=== PATIENT | male | born 1985 | race Caucasian/White ===

== ENCOUNTER 2017-02-03 13:25 | Emergency (ER) | payer MEDICAID ==
[~2017-02-03] VITALS: Ht 167.6 cm; Wt 77.1 kg
[2017-02-03 13:43] VITALS: BP 129/77
--- NOTE | 2017-02-03 14:03 | Emergency Room Report ---
History of Present Illness General Chief Complaint: Flu Like Symptoms Source: Patient Present Illness HPI 31-year-old male presents to the emergency department complaining of cough, runny nose, body aches, and 5/10 sore throat x one week. Patient denies fevers he reports chills denies neck pain or stiffness. Patient reports he is currently in sober living and multiple residents are ill with the same symptoms. Patient denies having this years flu vaccination. He denies rashes, abdominal pain. Denies CP, Palpitations, LOC, AMS, dizziness, Changes in Vision , Sensation, paresthesias, or a sudden severe headache. Allergies: Uncoded Allergies: SHELLFISH (Allergy, Unknown, 02/03/17) Patient History Past Medical History: see triage record Past Surgical History: none Pertinent Family History: none Reviewed Nursing Documentation: PMH: Agreed, PSxH: Agreed Nursing Documentation-PMH Hx Cardiac Problems: No - hyperlipidemia/ poly substance abuse Review of Systems All Other Systems: negative except mentioned in HPI Physical Exam Vital Signs Date Time Temp Pulse Resp B/P (MAP) Pulse Ox O2 Delivery O2 Flow Rate FiO2 02/03/17 13:37 97.9 83 18 129/77 98 Room Air Sp02 EP Interpretation: reviewed, normal General Appearance: no apparent distress, alert, GCS 15, non-toxic Head: normocephalic, atraumatic Eyes: bilateral eye normal inspection, bilateral eye PERRL ENT: hearing grossly normal, normal pharynx, no angioedema, normal voice, pharyngeal erythema Neck: full range of motion, no meningismus, no bony tend Respiratory: lungs clear, normal breath sounds, no rhonchi, no wheezing, speaking full sentences Cardiovascular #1: regular rate, rhythm Musculoskeletal: back normal, gait/station normal, normal range of motion, non- tender Neurologic: alert, oriented x3, responsive, motor strength/tone normal, sensory intact, speech normal Psychiatric: judgement/insight normal, memory normal, mood/affect normal Skin: normal color, no rash, warm/dry, well hydrated Lymphatic: no adenopathy Medical Decision Making PA Attestation Dr. Carcamo is my supervising Physician whom patient management has been discussed with. Diagnostic Impression: Primary Impression: Upper respiratory infection, viral ER Course 31-year-old male presents to the emergency department complaining of cough, runny nose, body aches, and 5/10 sore throat x one week. Patient denies fevers he reports chills denies neck pain or stiffness. Patient reports he is currently in sober living and multiple residents are ill with the same symptoms. Patient denies having this years flu vaccination. He denies rashes, abdominal pain. Denies CP, Palpitations, LOC, AMS, dizziness, Changes in Vision , Sensation, paresthesias, or a sudden severe headache. Ddx considered but are not limited to URI, pneumonia, PE, strep pharyngitis, meningitis. Vital signs: Pt. is afebrile, the remaining VS are WNL H&PE are most consistent with URI- no meningeal signs, oropharynx is not involved, no evidence of bacterial infection at this time. ORDERS: none required at this time, the diagnosis is clinical ED INTERVENTIONS: None required at this time. DISCHARGE: At this time pt. is stable for d/c to home. Will provide printed patient care instructions, and any necessary prescriptions. Care plan and follow up instructions have been discussed with the patient prior to discharge. Last Vital Signs Date Time Temp Pulse Resp B/P (MAP) Pulse Ox O2 Delivery O2 Flow Rate FiO2 02/03/17 13:43 83 18 Room Air 02/03/17 13:43 129/77 98 02/03/17 13:37 97.9 Disposition: HOME, SELF-CARE Condition: Stable Scripts Acetaminophen* (TYLENOL EXTRA STRENGTH*) 500 Mg Tablet 500 MG ORAL Q6H Y for Mild Pain/Temp > 100.5, #20 TAB 0 Refills Prov: Steffany Barrow 02/03/17 Guaifenesin/Dextromethorphan (ROBITUSSIN COUGH-CHEST DM LIQ) 237 Ml Liquid 5 ML PO Q6HR, #237 ML Prov: Steffany Barrow 02/03/17 Referrals: NOT CHOSEN [facility]/,REFERRING (PCP) Patient Instructions: Upper Respiratory Infection, Adult, [id number] Additional Instructions: Take medications as directed. Follow up with a Primary Care Provider in 3-5 days, even if your symptoms have resolved. --Please review list of primary care clinics, if you do not already have a primary care provider Return sooner to ED if new symptoms occur, or current symptoms become worse. - Please note that this Emergency Department Report was dictated using [employer] bench mechanic technology software, occasionally this can lead to erroneous entry secondary to interpretation by the dictation equipment. Steffany Barrow Feb 03, 2017 14:03
[2017-02-03] MEDS ORDERED: ROBITUSSIN COU237 M1 PO (14:04)
[2017-02-03] MEDS ORDERED: TYLENOL EXTRA500 MG ORAL (14:04)
[2017-02-03 14:08] VITALS: BP 129/77
== END 2017-02-03 14:08 | disposition home or self-care (01) ==
LOC: EMR 13:56
DX: J06.9 Acute upper respiratory infection, unspecified (principal); R05 Cough; R09.89 Other specified symptoms and signs involving the circulatory and respiratory systems; J02.9 Acute pharyngitis, unspecified
CPT/HCPCS: 99283

== ENCOUNTER 2017-04-12 14:05 | Emergency (ER) | payer MEDICAID, OTHER ==
[~2017-04-12] VITALS: Ht 167.6 cm; Wt 77.1 kg
[~2017-04-12 14:05] MED LIST: ROBITUSSIN COU237 M1 PO; TYLENOL EXTRA500 MG ORAL
[2017-04-12 14:20] VITALS: BP 129/76
[2017-04-12] MEDS: Norco 5mg/325mg tab ORAL ONE ×2 (14:23→14:34)
[2017-04-12] MEDS ORDERED: Acetaminophen 500mg (ES) tab ORAL ONE (14:45)
--- NOTE | 2017-04-12 15:26 | Emergency Room Report ---
History of Present Illness General Chief Complaint: Pain Source: Patient, Medical Record (Steffany Barrow) Present Illness HPI 32-year-old male presents to the emergency department complaining of 8/10 in severity dorsal right ankle pain after mechanical twisting of his ankle yesterday patient is able to bear weight however he reports continued tenderness and pain is exacerbated upon walking he reports a mild swelling. Patient denies previous injury to this extremity. Denies numbness tingling or loss of sensation or gross motor movements of the extremities, incontinence of bowel or bladder. Denies CP, Palpitations, LOC, AMS, dizziness, Changes in Vision, Sensation, paresthesias, or a sudden severe headache. (Steffany Barrow) Allergies: Uncoded Allergies: SHELLFISH (Allergy, Unknown, 02/03/17) Patient History Past Medical History: see triage record Past Surgical History: none Pertinent Family History: none Reviewed Nursing Documentation: PMH: Agreed, PSxH: Agreed (Steffany Barrow) Nursing Documentation-PMH Past Medical History: No History, Except For Hx Cardiac Problems: No - hyperlipidemia/ poly substance abuse (Steffany Barrow.Félix) Review of Systems All Other Systems: negative except mentioned in HPI (Steffany Barrow) Physical Exam Vital Signs Date Time Temp Pulse Resp B/P (MAP) Pulse Ox O2 Delivery O2 Flow Rate FiO2 04/12/17 14:11 97.9 84 18 129/76 97 Room Air Sp02 EP Interpretation: reviewed, normal General Appearance: no apparent distress, alert, GCS 15, non-toxic Head: normocephalic, atraumatic Eyes: bilateral eye normal inspection, bilateral eye PERRL ENT: hearing grossly normal, normal voice Neck: full range of motion Respiratory: lungs clear, normal breath sounds, speaking full sentences Cardiovascular #1: regular rate, rhythm, no edema Cardiovascular #2: 2+ dorsalis pedis (R) Rectal: deferred Musculoskeletal: back normal, normal range of motion, tender - TTP to the dorsum and medial aspect of the right foot, no bruises, very mild swelling noted , NVI Neurologic: alert, oriented x3, responsive, motor strength/tone normal, sensory intact, speech normal, grossly normal Skin: normal color, no rash, warm/dry, well hydrated Lymphatic: no adenopathy (Steffany Barrow) Medical Decision Making PA Attestation Dr. Carcamo is my supervising Physician whom patient management has been discussed with. (Steffany Barrow) Diagnostic Impression: Primary Impression: Right ankle sprain Qualified Codes: S93.401A - Sprain of unspecified ligament of right ankle, initial encounter ER Course 32-year-old male presents to the emergency department complaining of 8/10 in severity dorsal right ankle pain after mechanical twisting of his ankle yesterday patient is able to bear weight however he reports continued tenderness and pain is exacerbated upon walking he reports a mild swelling. Patient denies previous injury to this extremity. Denies numbness tingling or loss of sensation or gross motor movements of the extremities, incontinence of bowel or bladder. Denies CP, Palpitations, LOC, AMS, dizziness, Changes in Vision, Sensation, paresthesias, or a sudden severe headache. Ddx considered but are not limited to Fracture, dislocation, contusion, Sprain/ Strain/Spasm. Vital signs: are WNL, pt. is afebrile H&PE are most consistent with musculoskeletal injury will perform imaging to r/ o fractures/dislocations. Pt. ambulated into ED and into room. mild compensation noted favoring the right foot. ORDERS: - X-ray Right Ankle 3 views - negative for fx, Dislocation, or significant soft tissue injury, per preliminary read in ED, and signed by GISELL Barrow , my supervising physician has reviewed, and agrees with my interpretation. ED INTERVENTIONS: - Tylenol PO -Rick wrap applied by computer service technician. Pt. remains neurovascularly intact. --Patient is provided with crutches and instructed on their use DISCHARGE: At this time pt. is stable for d/c to home. Will provide printed patient care instructions, and any necessary prescriptions. Care plan and follow up instructions have been discussed with the patient prior to discharge. (Steffany Barrow) ER Course Procedure: XRAY Ankle Compl Min 3v R Indication: Pain right ankle Comparison: None Findings: 3 views of the right ankle obtained. There is a question of osteochondral defect along the medial aspect of the talar dome. Suggest further evaluation with CT or MRI. Alignment is normal. Soft tissues are unremarkable. IMPRESSION: Possible osteochondral defect in the talar dome. (Home Carcamo M.D.) Other X-Ray Diagnostic Results Other X-Ray Diagnostic Results : X-Ray ordered: Right ankle # of Views/Limited Vs Complete: 3 View Indication: Pain EP Interpretation: Yes PA Xray: Interpretation reviewed, by supervising MD, and agrees with findings. Interpretation: no dislocation, no soft tissue swelling, no fractures Impression: No acute disease Electronically Signed by: Steffany Barrow PA-C (Steffany Barrow) Last Vital Signs Date Time Temp Pulse Resp B/P (MAP) Pulse Ox O2 Delivery O2 Flow Rate FiO2 04/12/17 14:20 97.9 78 18 129/76 97 Room Air (Steffany Barrow) Disposition: HOME, SELF-CARE Condition: Stable Scripts Ibuprofen* (MOTRIN*) 600 Mg Tablet 600 MG ORAL THREE TIMES A DAY, #30 TAB 0 Refills Prov: Steffany Barrow 04/12/17 Referrals: [facility],REFERRING (PCP) Patient Instructions: Ankle Sprain, [id number] Additional Instructions: Take medications as directed. Follow up with a Primary Care Provider in 3-5 days, even if your symptoms have resolved. --Please review list of primary care clinics, if you do not already have a primary care provider Return sooner to ED if new symptoms occur, or current symptoms become worse. Do not drink alcohol, drive, or operate heavy machinery while taking [ ] as this may cause drowsiness. - Please note that this Emergency Department Report was dictated using [employer] operator technology software, occasionally this can lead to erroneous entry secondary to interpretation by the dictation equipment. Steffany Barrow Apr 12, 2017 15:26 Home Carcamo M.D. Apr 16, 2017 07:20
[2017-04-12] MEDS ORDERED: IBUPROFEN600 MG ORAL (15:27)
[2017-04-12 15:35] VITALS: BP 129/76
--- NOTE | 2017-04-12 16:22 | Diagnostic Imaging Report ---
Indication: Pain right ankle Comparison: None Findings: 3 views of the right ankle obtained. There is a question of osteochondral defect along the medial aspect of the talar dome. Suggest further evaluation with CT or MRI. Alignment is normal. Soft tissues are unremarkable. IMPRESSION: Possible osteochondral defect in the talar dome.
== END 2017-04-12 15:35 | disposition home or self-care (01) ==
LOC: EMR 14:28
DX: S93.401A Sprain of unspecified ligament of right ankle, initial encounter (principal); X50.1XXA Overexertion from prolonged static or awkward postures, initial encounter; Y92.9 Unspecified place or not applicable; Z91.013 Allergy to seafood
CPT/HCPCS: 99283

== ENCOUNTER 2017-05-20 08:03 | Emergency (ER) | payer OTHER ==
[~2017-05-20] VITALS: Ht 167.6 cm; Wt 77.1 kg
[~2017-05-20 08:03] MED LIST changes: +IBUPROFEN600 MG ORAL
[2017-05-20] MEDS ORDERED: NAPROXEN375 M2 ORAL (08:40)
[2017-05-20] MEDS ORDERED: LIDOCAINE VISC100 ML ORAL (08:40)
[2017-05-20] MEDS ORDERED: Lidocaine 2% Visc 15ml soln ORAL ONE (08:45)
[2017-05-20 08:49] VITALS: BP 127/89
[2017-05-20 08:50] VITALS: BP 127/89
--- NOTE | 2017-06-28 16:19 | Emergency Room Report ---
History of Present Illness General Chief Complaint: Flu Like Symptoms Source: Patient Present Illness HPI Patient 32-year-old male who presented after increased sore throat. Gradual onset of symptoms. Patient had some difficulty swallowing. He had not been having any neck stiffness. He denied vomiting.Patient was noted to have a cough with green phlegm. Allergies: Uncoded Allergies: SHELLFISH (Allergy, Unknown, 02/03/17) Patient History Past Medical History: see triage record Reviewed Nursing Documentation: PMH: Agreed, PSxH: Agreed Nursing Documentation-PMH Past Medical History: No History, Except For Review of Systems All Other Systems: negative except mentioned in HPI Physical Exam Vital Signs Date Time Temp Pulse Resp B/P (MAP) Pulse Ox O2 Delivery O2 Flow Rate FiO2 05/20/17 08:14 99.0 116 20 127/89 95 Room Air General Appearance: well appearing, no apparent distress, alert, GCS 15 Head: normocephalic, atraumatic ENT: hearing grossly normal, normal voice Neck: full range of motion, supple Respiratory: no respiratory distress, speaking full sentences Cardiovascular #1: normal inspection, normal peripheral pulses, regular rate, rhythm Gastrointestinal: normal inspection, normal bowel sounds, non tender Musculoskeletal: no calf tenderness Neurologic: normal inspection, alert, oriented x3, responsive, normal gait Psychiatric: normal inspection, mood/affect normal Skin: no rash Medical Decision Making Diagnostic Impression: Primary Impression: Acute viral pharyngitis ER Course Patient presented for sore throat . Differential diagnosis included but was not limited to meningitis, exudative tonsillitis, retropharyngeal abscess, epiglottitis, strep pharyngitis. Patient has a benign exam and does not appear to require any further imaging or laboratory testing at this time. The patient presented viral pharyngitis. The patient is advised to follow up with primary care doctor in 1-2 days. Patient is advised to return if any worsening condition or if any changes in status that are concerning. This report is dictated with [employer] aluminum can collector software which may occasionally lead to discrepancies related to use of this software. Last Vital Signs Date Time Temp Pulse Resp B/P (MAP) Pulse Ox O2 Delivery O2 Flow Rate FiO2 05/20/17 08:50 99.0 105 20 127/89 95 Room Air Status: improved Disposition: HOME, SELF-CARE Condition: Stable Scripts Lidocaine HCl 2% Viscous (Lidocaine HCl 2% Viscous) 100 Ml Solution 15 ML ORAL QID for For Pain, #120 ML Prov: Pepito Mccoy 05/20/17 Naproxen* (NAPROXEN*) 375 Mg Tablet. 375 MG ORAL TWICE A DAY, #20 TAB Prov: Pepito Mccoy 05/20/17 Patient Instructions: Pharyngitis Pepito Mccoy Jun 28, 2017 16:19
== END 2017-05-20 08:57 | disposition home or self-care (01) ==
LOC: EMR 08:24
DX: J02.8 Acute pharyngitis due to other specified organisms (principal); B97.89 Other viral agents as the cause of diseases classified elsewhere; Z91.013 Allergy to seafood
CPT/HCPCS: 99283

== ENCOUNTER 2018-11-03 09:06 | Emergency (ER) | payer MEDICAID, OTHER ==
[~2018-11-03] VITALS: Ht 167.6 cm; Wt 74.8 kg
[~2018-11-03 09:06] MED LIST changes: +LIDOCAINE VISC100 ML ORAL; +NAPROXEN375 M2 ORAL
[2018-11-03 09:15] VITALS: BP 111/73
--- NOTE | 2018-11-03 09:25 | NUR ---
ED Nurse Note: Pt. AAox4. ambulatory. Walked in to ER due to sorethroat X 2 weeks with non-productive cough. Reports no fever nor congestion.
[2018-11-03] MEDS ORDERED: AMOXICILLIN500 MG ORAL (09:30)
[2018-11-03 09:33] VITALS: BP 120/70
--- NOTE | 2018-11-03 09:33 | NUR ---
ER DISCHARGE NOTE: Patient is cleared to be discharged per ERMD, pt is aox4, on room air, with stable vital signs. pt was given dc and prescription instructions, pt was able to verbalize understanding, pt id band removed. pt is able to ambulate with steady gait. pt took all belongings.
--- NOTE | 2018-11-03 10:30 | Emergency Room Report ---
History of Present Illness General Chief Complaint: Sore Throat Source: Patient Present Illness HPI 33-year-old male presents ED for evaluation. Patient complaining of sore throat for the last 2 weeks. Denies cough. Denies any runny nose or congestion. States he resides at a sober living facility in several residents have been sick. Pain is dull, 5 out of 10, nonradiating. No other aggravating relieving factors. Denies any other associated symptoms Allergies: Uncoded Allergies: SHELLFISH (Allergy, Unknown, 02/03/17) Patient History Past Medical History: none Past Surgical History: none Pertinent Family History: none Social History: Denies: smoking, alcohol use, drug use Immunizations: UTD Reviewed Nursing Documentation: PMH: Agreed; PSxH: Agreed Nursing Documentation-PMH Past Medical History: No History, Except For Review of Systems All Other Systems: negative except mentioned in HPI Physical Exam Vital Signs Date Time Temp Pulse Resp B/P (MAP) Pulse Ox O2 Delivery O2 Flow Rate FiO2 11/03/18 09:15 98.1 71 16 111/73 98 Room Air Sp02 EP Interpretation: reviewed, normal General Appearance: no apparent distress, alert, GCS 15, non-toxic Head: normocephalic Eyes: bilateral eye normal inspection, bilateral eye PERRL ENT: hearing grossly normal, no angioedema, normal voice, TMs + canals normal, uvula midline, pharyngeal erythema, tonsillar exudate Neck: full range of motion, supple, no meningismus, supple/symm/no masses Respiratory: normal inspection Cardiovascular #1: normal inspection Gastrointestinal: normal inspection Rectal: deferred Genitourinary: no CVA tenderness Musculoskeletal: normal inspection Neurologic: alert, oriented x3, responsive, motor strength/tone normal, sensory intact, speech normal Psychiatric: normal inspection Skin: normal color Lymphatic: normal inspection Medical Decision Making Diagnostic Impression: Primary Impression: Pharyngitis Qualified Codes: J02.9 - Acute pharyngitis, unspecified ER Course Hospital Course 33-year-old male presents to ED complaining of sore throat x 2 weeks Differential diagnoses include: URI, pharyngitis, otitis media Clinical course Patient placed on stretcher. After initial history, physical exam reveals a male in no acute distress. Bilateral TM unremarkable. There is pharyngeal erythema w/ tonsillar exudates. No lymphadenopathy. Clinical findings consistent with pharyngitis. discussed findings with patient. We will discharge on antibiotics. Safe for discharge for close outpatient follow-up. Will provide referrals Diagnosis - pharyngitis Stable and discharged home with prescriptions for amoxicillin. Instructed to followup with PMD. return to ED if symptoms recur or worsen Last Vital Signs Date Time Temp Pulse Resp B/P (MAP) Pulse Ox O2 Delivery O2 Flow Rate FiO2 11/03/18 09:33 98.0 84 20 120/70 98 Room Air Status: improved Disposition: HOME, SELF-CARE Condition: Stable Scripts Amoxicillin* (AMOXIL*) 500 Mg Capsule 500 MG ORAL THREE TIMES A DAY, #21 CAP Prov: Sai Mandujano MD 11/03/18 Referrals: [facility] Patient Instructions: Pharyngitis, [id number] Sai Mandujano MD Nov 03, 2018 10:30
== END 2018-11-03 10:00 | disposition home or self-care (01) ==
LOC: EMR 09:50
DX: J02.9 Acute pharyngitis, unspecified (principal); Z91.013 Allergy to seafood
CPT/HCPCS: 99281

== ENCOUNTER 2018-11-10 11:15 | Emergency (ER) | payer MEDICAID ==
[~2018-11-10] VITALS: Ht 167.6 cm; Wt 74.4 kg
[~2018-11-10 11:15] MED LIST changes: +AMOXICILLIN500 MG ORAL
[2018-11-10 11:50] VITALS: BP 125/74
--- NOTE | 2018-11-10 11:50 | NUR ---
ED Nurse Note: pt walked in to ED due to sore throat. seen by [facility] on 11/03/18 for same sx. per pt, pain gets worse. denies SOB. AAO x4. respirations even and non-labored noted. will wait for the further order.
[2018-11-10] MEDS ORDERED: Dexamethasone 4mg/ml vial IM ONE (12:00)
[2018-11-10] MEDS ORDERED: AUGMENTIN 875-1 EAC1 ORAL (12:31)
[2018-11-10 12:40] VITALS: BP 125/74
--- NOTE | 2018-11-10 12:40 | NUR ---
ER DISCHARGE NOTE: Patient is cleared to be discharged per ERMD, pt is aox4, on room air, with stable vital signs. pt was given dc and prescription instructions, pt was able to verbalize understanding, pt id band removed without complications. pt is able to ambulate with steady gait. pt took all belongings.
--- NOTE | 2018-11-14 14:15 | Emergency Room Report ---
History of Present Illness General Chief Complaint: Sore Throat Source: Patient Present Illness HPI 33-year-old male presents ED for evaluation. Complaining of sore throat. Was seen here 1 week ago area diagnosed with pharyngitis and prescribed amoxicillin. States pain is overall improved but still is there. Dull, 5 out of 10, nonradiating. Denies fevers or chills. Denies cough. No other aggravating relieving factors. Denies any other associated symptoms. Allergies: Coded Allergies: SHELLFISH DERIVED (Verified Allergy, Unknown, 11/10/18) Patient History Past Medical History: none Past Surgical History: none Pertinent Family History: none Social History: Denies: smoking, alcohol use, drug use Immunizations: UTD Reviewed Nursing Documentation: PMH: Agreed; PSxH: Agreed Nursing Documentation-PMH Past Medical History: No History, Except For Review of Systems All Other Systems: negative except mentioned in HPI Physical Exam Vital Signs Date Time Temp Pulse Resp B/P (MAP) Pulse Ox O2 Delivery O2 Flow Rate FiO2 11/10/18 11:32 98.4 86 18 125/74 (91) 99 Room Air Sp02 EP Interpretation: reviewed, normal General Appearance: no apparent distress, alert, GCS 15, non-toxic Head: normocephalic Eyes: bilateral eye normal inspection, bilateral eye PERRL ENT: hearing grossly normal, no angioedema, normal voice, TMs + canals normal, pharyngeal erythema Neck: full range of motion, supple, no meningismus, supple/symm/no masses Respiratory: normal inspection Cardiovascular #1: normal inspection Gastrointestinal: normal inspection Rectal: deferred Genitourinary: no CVA tenderness Musculoskeletal: normal inspection Neurologic: alert, oriented x3, responsive, motor strength/tone normal, sensory intact, speech normal Psychiatric: normal inspection Skin: no rash Lymphatic: normal inspection Medical Decision Making Diagnostic Impression: Primary Impression: Pharyngitis Qualified Codes: J02.9 - Acute pharyngitis, unspecified ER Course Hospital Course 33 yo M presents with continued throat pain after taking abx Differential diagnoses include: URI, pharyngitis, otitis media Clinical course Patient placed on stretcher. After initial history, physical exam reveals a young male in no acute distress. Bilateral TM unremarkable. There is pharyngeal erythema w/o tonsillar exudates. No lymphadenopathy. discussed findings with patient. I saw patient on prior ED visit. Overall improved however appears erythematous. We will discharge on Augmentin. Recommend ENT follow-up. Will provide referrals diagnosis - pharyngitis Stable and discharged home with prescriptions for augmentin. Instructed to followup with PMD/ENT. return to ED if symptoms recur or worsen Last Vital Signs Date Time Temp Pulse Resp B/P (MAP) Pulse Ox O2 Delivery O2 Flow Rate FiO2 11/10/18 12:40 98.4 86 18 125/74 99 Room Air Status: improved Disposition: HOME, SELF-CARE Condition: Stable Scripts Amoxicillin/Potassium Clav 875-125* (AUGMENTIN 875-125 TABLET*) 1 Each Tablet 1 TAB ORAL TWICE A DAY, #14 TAB Prov: Sai Mandujano MD 11/10/18 Referrals: Mike Odonnell MD Patient Instructions: Pharyngitis, [id number] Sai Mandujano MD Nov 14, 2018 14:15
== END 2018-11-10 12:40 | disposition home or self-care (01) ==
LOC: EMR 12:10
DX: J02.9 Acute pharyngitis, unspecified (principal); Z91.013 Allergy to seafood
CPT/HCPCS: 96372; 99283; J1100

== ENCOUNTER 2018-12-14 11:51 | Emergency (ER) | payer MEDICAID ==
[~2018-12-14] VITALS: Ht 167.6 cm; Wt 74.8 kg
[~2018-12-14 11:51] MED LIST changes: +AUGMENTIN 875-1 EAC1 ORAL
[2018-12-14 12:18] VITALS: BP 147/80
--- NOTE | 2018-12-14 12:20 | NUR ---
ED Nurse Note: Patient walked in to ER from home due to left ear ache, sore throat x4 days. AAO x4, VSS at this time, skin is dry warm to touch.
[2018-12-14] MEDS ORDERED: Ketorolac 30mg Inj IM ONE (12:45)
--- NOTE | 2018-12-14 12:52 | Emergency Room Report ---
History of Present Illness General Chief Complaint: Earache Present Illness HPI 33 YO male presents to the ED c/o 06/[address] and left ear pain x 4 days. Denies decrease in hearing he denies excessive cerumen he reports pressure sensation of the left ear he denies external ear tenderness he denies fevers or chills he reports he is currently in a sober living with multiple ill contacts. Patient states symptoms are similar to what he experienced last month and he was diagnosed with pharyngitis. Patient also reports nasal congestion and rhinorrhea denies neck pain/stiffness, photophobia or headache. He reports body aches and fatigue. Patient reports intermittent cough denies excessive mucus production. He denies recent travel. Up-to-date with all vaccinations. He reports swallowing exacerbates his sore throat. no other aggravating or relieving factors at this time. 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 , ETOH, BZd's Reviewed Nursing Documentation: PMH: Agreed; PSxH: Agreed Review of Systems All Other Systems: negative except mentioned in HPI Physical Exam Vital Signs Date Time Temp Pulse Resp B/P (MAP) Pulse Ox O2 Delivery O2 Flow Rate FiO2 12/14/18 12:10 98.4 86 20 147/80 (102) 98 Room Air Sp02 EP Interpretation: reviewed, normal General Appearance: no apparent distress, alert, GCS 15, non-toxic Head: normocephalic, atraumatic Eyes: bilateral eye normal inspection, bilateral eye PERRL ENT: hearing grossly normal, no angioedema, normal voice, TMs + canals normal - TM's appear somewhat bulging from pressure, no erythema, no external tenderness, no excessive cerumen or d/c. , uvula midline, moist mucus membranes , nasal congestion - clear rhinorrhea bilaterally. left nare is not patent. , other - cobble stone appearance= PND, no exudates, no tonsillar swelling. Neck: full range of motion, no meningismus, no bony tend Respiratory: chest non-tender, lungs clear, normal breath sounds, no respiratory distress, no wheezing, speaking full sentences Cardiovascular #1: regular rate, rhythm Musculoskeletal: back normal, gait/station normal, normal range of motion, non- tender Neurologic: alert, oriented x3, responsive, motor strength/tone normal, sensory intact, speech normal, grossly normal Psychiatric: judgement/insight normal Skin: no rash Lymphatic: no adenopathy Medical Decision Making PA Attestation Dr. Mccoy is my supervising Physician whom patient management has been discussed with. Diagnostic Impression: Primary Impression: Acute viral pharyngitis Additional Impressions: Post-nasal drainage Nasal congestion with rhinorrhea Ear pain, left ER Course 33 YO male presents to the ED c/o 06/[address] and left ear pain x 4 days. Denies decrease in hearing he denies excessive cerumen he reports pressure sensation of the left ear he denies external ear tenderness he denies fevers or chills he reports he is currently in a sober living with multiple ill contacts. Patient states symptoms are similar to what he experienced last month and he was diagnosed with pharyngitis. Patient also reports nasal congestion and rhinorrhea denies neck pain/stiffness, photophobia or headache. He reports body aches and fatigue. Patient reports intermittent cough denies excessive mucus production. He denies recent travel. Up-to-date with all vaccinations. He reports swallowing exacerbates his sore throat. no other aggravating or relieving factors at this time. Ddx considered but are not limited to URI, pneumonia, PE, strep pharyngitis, meningitis, PND , OM/OE just to name a few. Vital signs: Pt. is afebrile, the remaining VS are WNL H&PE are most consistent with URI- no meningeal signs, oropharynx is not involved, no evidence of bacterial infection at this time. ORDERS: none required at this time, the diagnosis is clinical ED INTERVENTIONS: None required at this time. --PT. EDUCATION: Discussed antibiotic resistance with inappropriate prescribing of antibiotics for viral illnesses. Discussed signs and symptoms to indicate viral illness versus bacterial illness. DISCHARGE: At this time pt. is stable for d/c to home. Will provide printed patient care instructions, and any necessary prescriptions. Care plan and follow up instructions have been discussed with the patient prior to discharge. Last Vital Signs Date Time Temp Pulse Resp B/P (MAP) Pulse Ox O2 Delivery O2 Flow Rate FiO2 12/14/18 12:18 98.4 20 147/80 98 Room Air 12/14/18 12:10 86 Disposition: HOME, SELF-CARE Condition: Stable Scripts Lidocaine HCl 2% Viscous (Lidocaine HCl 2% Viscous) 100 Ml Solution 10 ML ORAL QID, #120 ML Prov: Steffany Barrow 12/14/18 Cetirizine Hcl/Pseudoephedrine (ZYRTEC-D TABLET) 1 Each Tab.er.12h 1 EACH ORAL Q12HR for 10 Days, #20 TAB Prov: Steffany Barrow 12/14/18 Acetaminophen* (TYLENOL EXTRA STRENGTH*) 500 Mg Tablet 500 MG ORAL Q6H, #20 TAB 0 Refills Prov: Steffany Barrow 12/14/18 [facility],REFERRING (PCP) Patient Instructions: Earache, Viral Respiratory Infection, [id number] Additional Instructions: Take medications as directed. Follow up with a Primary Care Provider in 3-5 days, even if your symptoms have resolved. --Please review list of primary care clinics, if you do not already have a primary care provider Return sooner to ED if new symptoms occur, or current symptoms become worse. - Please note that this Emergency Department Report was dictated using [employer] glass etcher technology software, occasionally this can lead to erroneous entry secondary to interpretation by the dictation equipment. Steffany Barrow Dec 14, 2018 12:52
[2018-12-14] MEDS ORDERED: TYLENOL EXTRA500 MG ORAL (12:54)
[2018-12-14] MEDS ORDERED: ZYRTEC-D TABLE1 EACH ORAL (12:54)
[2018-12-14] MEDS ORDERED: LIDOCAINE VISC100 ML ORAL (12:54)
[2018-12-14 13:06] VITALS: BP 147/80
--- NOTE | 2018-12-14 13:07 | NUR ---
ED Nurse Note: Pt cleared by health care Provider for discharge. DC instructions/prescription was given and explained to pt and verbalized understanding of teachings. All medical deviecs such as ID band removed. Pt is AAO x4, ambulatory and left with all personal belongings.
== END 2018-12-14 13:07 | disposition home or self-care (01) ==
LOC: EMR 12:16
DX: J02.9 Acute pharyngitis, unspecified (principal); B97.89 Other viral agents as the cause of diseases classified elsewhere; H92.02 Otalgia, left ear; R09.82 Postnasal drip; R09.81 Nasal congestion; Z91.013 Allergy to seafood
CPT/HCPCS: 96372; 99283; J1885

== ENCOUNTER 2019-03-28 21:10 | Emergency (ER) | payer MEDICAID ==
[~2019-03-28] VITALS: Ht 167.6 cm; Wt 72.6 kg
[~2019-03-28 21:10] MED LIST changes: +ZYRTEC-D TABLE1 EACH ORAL
--- NOTE | 2019-03-28 21:20 | NUR ---
NOT IN TRIAGE ROOM
[2019-03-28 21:34] VITALS: BP 126/85
--- NOTE | 2019-03-28 21:35 | NUR ---
ED Nurse Note: Pt walked in to ED For C/O lump to back of his head with itchiness and pain since Wednesday. PT is alert x 4
--- NOTE | 2019-03-28 21:47 | Emergency Room Report ---
History of Present Illness General Chief Complaint: Skin Rash/Abscess Source: Medical Record Present Illness HPI This is a 34-year-old male presents after increased swelling to the back of his head. He reports having onset of symptoms approximately 1 week ago. He had been gradually noticed increased itchy to the area. He stated this started after he had a recent haircut. Denies any fever. Denies any prior medical history. He had not been treated on antibiotics recently. Denies any other locations of discomfort at this time. Denies recent head trauma Allergies: Coded Allergies: SHELLFISH DERIVED (Verified Allergy, Unknown, 11/10/18) Patient History Past Medical History: see triage record Reviewed Nursing Documentation: PMH: Agreed; PSxH: Agreed Nursing Documentation-PMH Past Medical History: No History, Except For Review of Systems All Other Systems: negative except mentioned in HPI Physical Exam Vital Signs Date Time Temp Pulse Resp B/P (MAP) Pulse Ox O2 Delivery O2 Flow Rate FiO2 03/28/19 21:30 98.2 103 18 126/85 (99) 95 Room Air General Appearance: well appearing, no apparent distress, alert, GCS 15, non- toxic Head: atraumatic, other - right side occipital scalp swelling with no erythema or drainage, some crusting ENT: hearing grossly normal, normal voice Neck: full range of motion, supple Respiratory: no respiratory distress, speaking full sentences Musculoskeletal: no calf tenderness Neurologic: normal gait Psychiatric: mood/affect normal Skin: no rash Medical Decision Making Diagnostic Impression: Primary Impression: Infected scalp abrasion ER Course Patient presented for scalp swelling. Differential diagnosis include was not limited to contusion, abscess, infected abrasion among others. Patient has a benign exam and does not appear to require any imaging or laboratory testing at this time. Patient appears to have some soft tissue swelling to the scalp associated with some area of crusting. This appears to be possibly an early infection and so patient will be treated with oral antibiotics. He appears to be stable for outpatient management. He does not appear to require incision and drainage at this time. Patient was advised to have the wound rechecked in 2 days. He is advised to return if worse. Last Vital Signs Date Time Temp Pulse Resp B/P (MAP) Pulse Ox O2 Delivery O2 Flow Rate FiO2 03/28/19 21:30 98.2 103 18 126/85 (99) 95 Room Air Status: improved Disposition: HOME, SELF-CARE Condition: Stable Pepiot Mccoy MD Mar 28, 2019 21:47
[2019-03-28] MEDS ORDERED: CEPHALEXIN500 MG ORAL (21:50)
[2019-03-28] MEDS ORDERED: BACTRIM DS TAB1 EAC1 ORAL (21:50)
[2019-03-28 21:55] VITALS: BP 120/85
== END 2019-03-28 21:55 | disposition home or self-care (01) ==
LOC: EMR 21:53
DX: S00.01XA Abrasion of scalp, initial encounter (principal); L08.9 Local infection of the skin and subcutaneous tissue, unspecified; X58.XXXA Exposure to other specified factors, initial encounter; Y92.9 Unspecified place or not applicable; Z91.013 Allergy to seafood
CPT/HCPCS: 99282